=== PATIENT | female | born 1960 | race Caucasian/White ===

== ENCOUNTER 2022-03-09 14:30 | Emergency (ER) | payer OTHER, SELFPAY ==
[2022-03-09 14:31] VITALS: BP 138/84; PULSE 102; RESP 18; TEMP 36.6; O2SAT 98; BMI 36.6
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
[2022-03-09] MEDS: MORPHINE 10 MG/ML inj IM (15:10)
== END 2022-03-09 15:30 | disposition home or self-care (01) ==
LOC: ED 14:58
PROVIDERS: Emergency Provider Emergency Medicine Emergency Medical Services; PCP Nurse Practitioner Family
DX: S39.012A Strain of muscle, fascia and tendon of lower back, initial encounter (principal); X50.0XXA Overexertion from strenuous movement or load, initial encounter
CPT/HCPCS: 96372; 99283; 99284; J2270

== ENCOUNTER 2023-05-26 07:03 | Day surgery (SDC) | payer BC, OTHER, SELFPAY ==
[2023-05-26] MEDS: LACTATED RINGERS 1000 ML 1,000 ML 100 ML IV (07:05)
[2023-05-26] MEDS: SODIUM CHLORIDE 0.9 % (FLUSH) 10 ML SYRINGE IVF (07:14)
[2023-05-26 07:17] VITALS: BP 136/80; PULSE 81; RESP 16; TEMP 36.4; O2SAT 97; BMI 41.1
--- NOTE | 2023-05-26 07:31 | W.PM.H&PU ---
History & Physical Update History & Physical Update H&P Reviewed and patient assessed: No changes noted
[2023-05-26 08:25] VITALS: BP 105/69; PULSE 63; RESP 16; O2SAT 98
[2023-05-26] MEDS: MIDAZOLAM HCL 1 MG/ML inj IVP (08:25)
[2023-05-26] MEDS: fentaNYL 100 MCG/2 ML inj IVP (08:25)
[2023-05-26 08:30] VITALS: BP 93/59; PULSE 70; RESP 16; O2SAT 98
--- NOTE | 2023-05-26 08:38 | SUR.PREOP ---
TIME?OUT:?824 PT/RN/MDA?VERIFICATION?OF?SURGICAL?SITE Right Hand,?PROCEDURE Ax Block,?AND?CONSENT OBTAINED?PRIOR?TO?INVASIVE?PROCEDURE.
[2023-05-26] MEDS: CEFAZOLIN 2 GM in 0.9 % SODIUM CHLORIDE Mini-bag 100 ML IVPB (08:50)
[2023-05-26] MEDS: BUPIVACAINE 0.25% 30 ML INJECTION (09:10)
[2023-05-26] MEDS: LIDOCAINE 1% MDV 20 ML INJECTION (09:10)
--- NOTE | 2023-05-26 09:13 | W.ANESCHARGE ---
Anesthesia Charges Start Date/Time Anesthesia Start Date: 05/26/23 Anesthesia Start Time: 08:44 Stop Date/Time Anesthesia Stop Date: 05/26/23 Anesthesia Stop Time: 10:37
[2023-05-26] MEDS: BACITRACIN OINTMENT BULK TUBE 1 APPLIC TOPICAL (10:18)
[2023-05-26 10:37] VITALS: BP 114/66; PULSE 58; RESP 16; TEMP 36.2; O2SAT 95
[2023-05-26 10:45] VITALS: BP 126/69; PULSE 68; RESP 16; O2SAT 95
--- NOTE | 2023-05-26 10:49 | PM.ORPRC ---
Procedure Note Date of procedure: 05/26/23 Procedure: PREOPERATIVE DIAGNOSIS: 1. Right Dupuytren's contracture with significant cords and nodules primarily involving the 3rd-5th rays and extension into the ring and small finger palmar aspect. POSTOPERATIVE DIAGNOSIS: 1. Right Dupuytren's contracture with significant cords and nodules primarily involving the 3rd-5th rays and extension into the ring and small finger palmar aspect. PROCEDURE: 1. Right open Dupuytren's contracture fasciectomy including the palm 3rd-5th rays and extension of cords and nodules into the ring and small fingers. SURGEON: Williams Shell MD. CAR PUSHER: Rey Garcia PA-C - Of note, an medical laboratory assistant was critical for this case to aid in patient positioning, tissue retraction, limb manipulation/positioning, and closure. ANESTHESIA: Regional block plus MAC IMPLANTS: None TOURNIQUET: 50 minutes at 225 torr forearm tourniquet COMPLICATIONS: None evident INDICATIONS: The patient is a pleasant 63-year-old female who has experienced right palm Dupuytren's contracture with extension into the ring and small fingers and extension into the palm of the 3rd-5th rays. Nonoperative management has been tried but unsuccessful. Given the failure of nonoperative management, and how this affects daily life, surgery was recommended. DESCRIPTION OF PROCEDURE: Following a thorough discussion of risks, benefits, and alternatives consent was obtained and the operative extremity was marked. The patient was brought to the operating room and placed supine on the operating table. No antibiotics were administered as this was planned to be a local case only. Proper time-out was performed identifying proper patient, site, and procedure. The operative extremity was prepped and draped in the appropriate sterile fashion using ChloraPrep. The limb was exsanguinated and the tourniquet inflated. A Tania type incision with was made along the palmar aspect of the hand. This extended into the small finger PIP joint crease. We were able to create a skin flap that was able to the mobilize distal and radial to access the cord into the 4th finger. The Lane fascia could also be accessed and mobilized from the dermis and the deeper tissues. Indeed the cords and nodules spiraled around the radial digital nerve to the small finger and palmar digital branches. After mobilizing the redundant palmar fascia from those other tissues, we were able to excise it completely. It was sent for permanent pathology. A thorough irrigation normal saline was performed. Closure performed with 4-0 nylon in interrupted fashion including mattresses to help with skin eversion. The skin was puckered preoperatively but able to lay relatively flat without significant tissue loss. Tourniquet was deflated prior to skin closure and hemostasis achieved. Soft dressings were applied, and the patient was awoken/transferred to the recovery room in stable condition. PLAN: 1. Encourage elevation of the operative extremity. 2. Range of motion of the operative extremity/digits as tolerated. 3. Ibuprofen, acetaminophen and/or oxycodone as needed for pain. 4. Follow up with PA visit in 12-16 days for wound check and suture removal.
[2023-05-26 10:51] VITALS: BP 119/70; PULSE 64; RESP 16; O2SAT 95
--- NOTE | 2023-05-26 11:37 | W.PM.NB ---
Nerve Block Nerve Block Time Seen by Provider: 08:29 Date Seen: 05/26/23 Type of block requested by surgeon for post-operative analgesia: axillary Side: right Time out performed: Yes Verification of patient name: Yes Verification of date of : Yes Site marking: site marked Name of person performing procedure: Champ Continuous monitoring Was continuous monitoring of O2 sat, B/P, monitoring coordinator, recorded every 15 minutes?: Yes Procedure Checklist: sterile prep, needles and gloves Ultrasound guided. Images saved: Yes Medications given in 5ml increments after negative aspiration: Ropivicaine %: 0.5 mL: 30 Needle gauge: 22 Patient tolerated procedure well: Yes Additional comments: Needle noted adjacent to nerve Block Charges Block Charge (with Pro Fee): Brachial Plexus Use of Ultrasound Machine for Block: Yes- US Guidance/pain block
== END 2023-05-26 11:11 | disposition home or self-care (01) ==
PROVIDERS: PCP Emergency Medicine; Visit Provider Orthopaedic Surgery Sports Medicine
PROC: (CPT 25000; principal; 2023-05-26 09:00)
DX: M72.0 Palmar fascial fibromatosis [Dupuytren] (principal); G89.18 Other acute postprocedural pain
CPT/HCPCS: 26121; 01810; 64415; 76942; 88304; J0665; J0690; J2250; J2405; J2704; J2795; J3010; J3490; J7120

== ENCOUNTER 2023-08-06 10:00 | Outpatient (RCR) | payer BC, OTHER, SELFPAY | END 2023-12-04 23:59 | disposition home or self-care (01) | PROVIDERS: PCP Emergency Medicine; Visit Provider Orthopaedic Surgery Sports Medicine | DX: Z98.890 Other specified postprocedural states (principal); Z51.89 Encounter for other specified aftercare | CPT/HCPCS: 97035; 97110; 97140; 97165; 97530; L3913; X5282 ==

== ENCOUNTER 2024-06-03 09:18 | Outpatient (CLI) | payer BC, OTHER, SELFPAY | END 2024-06-03 09:19 | disposition home or self-care (01) | PROVIDERS: PCP Emergency Medicine; Visit Provider Emergency Medicine | DX: Z13.228 Encounter for screening for other metabolic disorders (principal); Z13.220 Encounter for screening for lipoid disorders; Z13.29 Encounter for screening for other suspected endocrine disorder | CPT/HCPCS: 80053; 80061; 84443 ==

== ENCOUNTER 2024-06-22 12:07 | Outpatient (CLI) | payer BC, OTHER, SELFPAY | END 2024-06-22 12:08 | disposition home or self-care (01) | LOC: LKVREF 12:08 | PROVIDERS: PCP Emergency Medicine; Visit Provider Emergency Medicine | DX: Z22.7 Latent tuberculosis (principal) | CPT/HCPCS: 86480 ==